=== PATIENT | male | born 1980 | race African-American/Black ===

== ENCOUNTER 2019-10-23 21:40 | Emergency (ER) | payer BC ==
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
[2019-10-23 22:31] VITALS: BP 0/0
== END 2019-10-23 22:30 | disposition home or self-care (01) ==
LOC: ED 21:40
DX: S02.2XXA Fracture of nasal bones, initial encounter for closed fracture (principal); W50.0XXA Accidental hit or strike by another person, initial encounter; Y92.9 Unspecified place or not applicable
CPT/HCPCS: 99281